=== PATIENT | female | born 1935 | race Caucasian/White ===

== ENCOUNTER 2018-01-27 17:52 | Emergency (ER) | payer MEDICARE, OTHER ==
[~2018-01-27] VITALS: Ht 152.4 cm; Wt 74.4 kg
[~2018-01-27 17:52] MED LIST: ALBU90OI INH; AMLO5 PO; ASPI81CH PO; Aspir-Low81 MG PO; CHLORTABS4 MG PO; EZET10-40 PO; FOLI1 PO; HYDSUL200 PO; IBUP800 PO; LEVSOD88 PO; LOSHYD PO; MAGNESIUM PO; METO100 PO; METO50 PO; METTREX2.5 PO; MULVITMIND PO; Mucinex600 MG PO; NITR.6SL SL; OMEP20ER PO; OMEP40CA12 PO; Omeprazole20 M1 PO; PRED1 PO; PROLIA60 MG/1 ML SC; SIMV40 PO; TOLT4 PO; TRAM50 PO; VITAMIN D3 PO; Zofran Odt4 MG SL
[2018-01-27] MEDS ORDERED: FISH OIL 1,0001 EAC1 PO (18:01)
[2018-01-27 18:46] LABS: Calcium, Ionized (POC) 1.12 mmol/L (1.10-1.46); Chloride (POC) 106 mmol/L (98-108); Creatinine (POC) 1.6 mg/dL (0.6-1.0); Glucose (ISTAT POC) 77 mg/dL (70-99); Hemoglobin (POC) 11.9 g/dL (12.0-16.0); Sodium (POC) 140 mmol/L (135-148); Total CO2 (POC) 24 mmol/L (21-32)
== END 2018-01-27 19:38 | disposition home or self-care (01) ==
LOC: ER 17:52
PROVIDERS: Emergency Medicine
DX: S00.03XA Contusion of scalp, initial encounter (principal); I10 Essential (primary) hypertension; E78.00 Pure hypercholesterolemia, unspecified; Z88.8 Allergy status to other drugs, medicaments and biological substances; Z88.2 Allergy status to sulfonamides; Z79.899 Other long term (current) drug therapy; Z79.82 Long term (current) use of aspirin; W22.8XXA Striking against or struck by other objects, initial encounter
CPT/HCPCS: 70450; 80047; 85014; 93005; 93010; 99284-25

== ENCOUNTER 2018-07-10 10:45 | Emergency (ER) | payer MEDICARE, OTHER ==
[~2018-07-10] VITALS: Ht 152.4 cm; Wt 78.0 kg
[~2018-07-10 10:45] MED LIST changes: +FISH OIL 1,0001 EAC1 PO
[2018-07-10 11:44] LABS: BASOPHILS ABSOLUTE AUTO 0.01 K/mm3 (0.00-0.23); BASOPHILS PERCENT AUTO 1 % (0-2); EOSINOPHILS ABSOLUTE AUTO 0.06 K/mm3 (0.00-0.68); EOSINOPHILS PERCENT AUTO 3 % (0-6); Hematocrit 33.5 % (33.0-51.0); Hemoglobin 10.7 g/dL (11.5-16.0); IMMATURE GRAN PERCENT AUTO 0 % (0-1); LYMPHOCYTES ABSOLUTE AUTO 1.16 K/mm3 (0.84-5.20); LYMPHOCYTES PERCENT AUTO 58 % (21-46); MONOCYTES ABSOLUTE AUTO 0.09 K/mm3 (0.16-1.47); MONOCYTES PERCENT AUTO 5 % (4-13); Mean Corpuscular HGB 32.9 pg (26.0-34.0); Mean Corpuscular HGB Conc 31.9 g/dL (31.5-36.5); Mean Platelet Volume 10.8 fL (9.1-12.4); NEUTROPHILS ABSOLUTE AUTO 0.67 K/mm3 (1.96-9.15); NEUTROPHILS PERCENT AUTO 34 % (41-73); Platelet Count 62 K/mm3 (150-400); RDW Coefficient Variation 15.9 % (11.7-14.2); RDW Standard Deviation 57.8 fL (35.1-46.3); Red Blood Cell Count 3.25 M/mm3 (3.80-5.20); White Blood Cell Count 1.99 K/mm3 (4.00-11.30)
[2018-07-10 11:53] LABS: Mean Corpuscular Volume 103 fL (80-100)
[2018-07-10 12:02] LABS: Albumin, Blood 3.4 g/dL (3.4-5.0); Albumin/Globulin Ratio 1.3 (0.8-1.8); Bilirubin, Total 0.6 mg/dL (0.1-1.0); Bun/Creatinine Ratio 14.9 (12.0-20.0); Calcium, Blood 8.3 mg/dL (8.5-10.1); Creatinine, Blood 1.41 mg/dL (0.40-1.00); Globulin, Blood 2.7 g/dL (2.2-4.0); Potassium, Blood 4.2 mmol/L (3.5-5.5); Total Protein, Blood 6.1 g/dL (6.4-8.2)
[2018-07-10] MEDS ORDERED: LEVFLO500 PO (13:33)
[2018-07-10] MEDS ORDERED: ONDA4ODT MM (13:40)
[2018-07-10 14:27] LABS: International Normalized Ratio 1.02; Prothrombin Time Results 10.8 Sec (9.7-11.5)
== END 2018-07-10 14:27 | disposition home or self-care (01) ==
LOC: ER 10:45
PROVIDERS: Internal Medicine; Physician Assistant
DX: D46.9 Myelodysplastic syndrome, unspecified (principal); R11.0 Nausea; I12.9 Hypertensive chronic kidney disease with stage 1 through stage 4 chronic kidney disease, or unspecified chronic kidney disease; N18.9 Chronic kidney disease, unspecified; E78.00 Pure hypercholesterolemia, unspecified; M19.90 Unspecified osteoarthritis, unspecified site; J44.9 Chronic obstructive pulmonary disease, unspecified; I95.9 Hypotension, unspecified; K21.9 Gastro-esophageal reflux disease without esophagitis
CPT/HCPCS: 71046; 80053; 82947; 85025; 85610; 93005; 93010; 94640; 96361; 96374; 96375; 96376; 99284-25; J2405; J3360; J7030

== ENCOUNTER → 2019-01-27 | Outpatient (CLI) | payer MEDICARE, OTHER ==
[~2019-01-27] MED LIST changes: +LEVFLO500 PO; +ONDA4ODT MM
== END | disposition home or self-care (01) ==
LOC: LAB 11:30 → LAB SHORT 11:30
DX: R06.02 Shortness of breath (principal)
CPT/HCPCS: 83880

== ENCOUNTER 2019-05-06 00:27 | Day surgery (SDC) | payer MEDICARE, OTHER | END 2019-05-06 16:46 | disposition home or self-care (01) | LOC: ATC 00:27 | PROC: 30243N1 Transfusion of Nonautologous Red Blood Cells into Central Vein, Percutaneous Approach (ICD-10-PCS; principal; 2019-05-06) | DX: I12.9 Hypertensive chronic kidney disease with stage 1 through stage 4 chronic kidney disease, or unspecified chronic kidney disease (principal); N18.4 Chronic kidney disease, stage 4 (severe); D63.1 Anemia in chronic kidney disease; N25.81 Secondary hyperparathyroidism of renal origin; D50.9 Iron deficiency anemia, unspecified; N28.1 Cyst of kidney, acquired; E55.9 Vitamin D deficiency, unspecified; M10.9 Gout, unspecified; M06.9 Rheumatoid arthritis, unspecified; Z79.52 Long term (current) use of systemic steroids; Z79.82 Long term (current) use of aspirin; Z79.899 Other long term (current) drug therapy; Z88.2 Allergy status to sulfonamides; Z88.4 Allergy status to anesthetic agent; Z88.8 Allergy status to other drugs, medicaments and biological substances | CPT/HCPCS: 36415; 36430; 86850; 86900; 86901; 86923; J1642; J7050; P9016 ==